=== PATIENT | female | born 2000 | race Caucasian/White ===

== ENCOUNTER 2022-07-04 09:46 | Outpatient (CLI) | payer SELFPAY | END 2022-07-04 09:47 | disposition home or self-care (01) | LOC: FRMREF 09:48 | PROVIDERS: PCP Physician Assistant Medical; Visit Provider Physician Assistant Medical | DX: N92.0 Excessive and frequent menstruation with regular cycle (principal); F98.8 Other specified behavioral and emotional disorders with onset usually occurring in childhood and adolescence | CPT/HCPCS: 84443 ==

== ENCOUNTER 2022-08-30 10:02 | Outpatient (CLI) | payer BC, SELFPAY ==
--- NOTE | 2022-08-30 10:15 | CRLHL7_ITS ---
For Patients: As a result of the Century Cures Act, medical imaging exams and procedure reports are released immediately into your electronic medical record. You may view this report before your referring provider. If you have questions, please contact your health care provider. INDICATION: Menorrhagia COMPARISON: none TECHNIQUE: 2D miguel scale and color Doppler images were acquired of the pelvis using a transabdominal and transvaginal approach. FINDINGS: Sonographic images demonstrate a normal size and smooth outer contour of the uterus. Uterus measures 9.1 cm in length by 4.9 cm in AP diameter by 4.6 cm in transverse dimension. The myometrium has a normal uniform echotexture. The endometrial lining measures 8 mm in composite thickness. The right ovary measures 3.7 x 2.9 x 2.7 cm in size and the left ovary measures 4.2 x 2.1 x 2.4 cm. The ovaries demonstrate normal arterial and venous blood flow on color Doppler analysis. Trace physiologic free fluid. IMPRESSION: 8 millimeter endometrial thickness. No uterine fibroid or endometrial fluid. Dictated by Amando Leonard MD @ 08/30/2022 1:21:19 PM (Electronically Signed)
== END 2022-08-30 10:03 | disposition home or self-care (01) ==
LOC: US 10:04
PROVIDERS: PCP Physician Assistant Medical; Visit Provider Physician Assistant Medical
DX: N92.0 Excessive and frequent menstruation with regular cycle (principal); R93.89 Abnormal findings on diagnostic imaging of other specified body structures
CPT/HCPCS: 76830; 76856

== ENCOUNTER 2023-10-10 09:00 | Outpatient (CLI) | payer MEDICAID, SELFPAY | END 2023-10-10 09:01 | disposition home or self-care (01) | LOC: NFLDREF 10-15 07:42 | PROVIDERS: PCP Physician Assistant Medical; Referring Provider Physician Assistant Medical; Visit Provider Physician Assistant Medical | DX: Z11.3 Encounter for screening for infections with a predominantly sexual mode of transmission (principal) | CPT/HCPCS: 87491; 87591 ==